=== PATIENT | male | born 1995 | race African-American/Black ===

== ENCOUNTER 2023-08-28 17:25 | Emergency (ER) | payer SELFPAY ==
[2023-08-28 17:30] VITALS: BP 125/66; PULSE 80; RESP 18; TEMP 98.5; BMI 34.7
[2023-08-28] MEDS ORDERED: DIPHTH,PERTUSS(ACELL),TET 0.5 ML DISP.SYRIN IM ONE (17:45)
[2023-08-28] MEDS: DIPHTH,PERTUSS(ACELL),TET 0.5 ML DISP.SYRIN IM ONE (17:50)
== END 2023-08-28 17:52 | disposition home or self-care (01) ==
LOC: JERFT 17:25
PROC: 3E0234Z Introduction of Serum, Toxoid and Vaccine into Muscle, Percutaneous Approach (ICD-10-PCS; principal; 2023-08-28)
DX: S51.852A Open bite of left forearm, initial encounter (principal); Y04.1XXA Assault by human bite, initial encounter; Z23 Encounter for immunization
CPT/HCPCS: 90715; 99283-25